=== PATIENT | female | born 1945 | race Caucasian/White ===

== ENCOUNTER 2017-09-08 17:51 | Emergency (ER) | payer MEDICARE ==
[2017-09-08] MEDS ORDERED: Ondansetron HCl/PF 4 MG/2 ML Vial ONE (18:14)
[2017-09-08] MEDS ORDERED: Morphine 4 MG/ML VIAL ONE ×2 (18:14→19:07)
[2017-09-08 18:29] LABS: #Basophils 0.1 thou/uL (0.0-0.2); #Eosinphils 0.1 thou/uL (0.0-0.7); #Lymphocytes 1.5 thou/uL (1.20-3.40); #Monocytes 0.6 thou/uL (0.11-0.59); #Neutrophils 4.3 thou/uL (1.40-6.50); %Basophils 0.8 % (0.0-1.0); %Eosinophils 1.3 % (0.0-10.0); %Lymphocytes 22.4 % (21.0-51.0); %Monocytes 9.4 % (0.0-10.0); Hematocrit 41.1 % (36.0-47.0); Mean Platelet Volume 7.4 fL (7.4-10.4); Red Blood Cell (RBC) Count 4.43 mill/uL (4.20-5.40); White Blood Cell (WBC) Count 6.5 thou/uL (4.8-10.8)
[2017-09-08 18:37] LABS: Bilirubin Negative (Negative); Blood, Urine Negative (Negative); Glucose, Urine (Dipstick) Negative (Negative); Ketone, Urine Negative (Negative); Nitrite Negative (Negative); Protein, Urine (Dipstick) Negative (Neg-Trace); Urobilinogen 0.2 mg/dL (0.2-1.0)
[2017-09-08 18:39] LABS: Bacteria/HPF None Seen HPF (None Seen); Hyaline Casts/LPF 0-3 HYALINE CAST LPF (0-3 Hyaline); RBC/HPF 0-3 HPF (0-3); Squamous Epithelial None Seen HPF (0-3); WBC/HPF 0-3 HPF (0-3)
[2017-09-08 18:54] LABS: ALT (SGPT) 24 U/L (8-55); AST (SGOT) 30 U/L (5-34); Alkaline Phosphatase 58 U/L (40-150); Anion Gap 12 mmol/L (10-20); BUN (Urea Nitrogen) 15 mg/dL (9.8-20.1); Bilirubin, Total 0.5 mg/dL (0.2-1.2); Calc. Creatinine Clearance 0 mL/min (70-130); Calcium 9.8 mg/dL (7.8-10.44); Carbon Dioxide 28 mmol/L (23-31); Chloride 102 mmol/L (98-107); Estimated GFR-MDRD 76; Globulin 2.9 g/dL (2.4-3.5); Lipase 5 U/L (8-78); Protein, Total 7.5 g/dL (6.0-8.3)
[2017-09-08] MEDS ORDERED: Ketorolac Tromethamine 30 MG/ML VIAL ONE (19:07)
--- NOTE | 2017-09-08 20:56 | CT ---
CT OF THE ABDOMEN AND PELVIS WITHOUT IV CONTRAST 09/08/17 INDICATION: Right sided flank pain. COMPARISON: CT of the chest, abdomen and pelvis dated 01/22/17 with contrast. FINDINGS: The lung bases are clear. There is calcified granuloma within the spleen and liver. There is a stable cyst within the right kid jr. No hydronephrosis. No definite renal or ureteral calculus noted. There are moderate calcifications involving the dominant aorta. The appendix is not definitely visualized. No free fluid is evident. The bladder is decompressed. The colon is largely decompressed. There is scattered colonic diverticul osis. There are scattered degenerative and osteoarthritic change. There is diffuse osteopenia. IMPRESSION: 1. No definite acute abnormality. 2. Right renal cyst. 3. Colonic diverticulosis. 4. Non visualization of the appendix; however, there are no secondary signs for appendicitis. POS: [facility]
--- NOTE | 2017-09-08 22:11 | ULT ---
RIGHT UPPER QUADRANT ULTRASOUND 09/08/17 INDICATION: Right flank pain, nausea and vomiting for four days. FINDINGS: No focal hepatic lesions evident. Gallbladder was within normal limits. Common bile duct measured 3.2 mm which is normal. Right kidney measured 10.3 cm in length. There is a 1.6 cm cyst involving the in ferior pole of the right kidney. The visualized portions of the pancreas is unremarkable. no sonograp hic Adam's sign is reported. IMPRESSION: 1. No acute sonographic abnormality of the right upper quadrant. 2. Right renal cyst. POS: [facility]
== END 2017-09-08 20:42 | disposition home or self-care (01) ==
LOC: ERS 17:51
DX: R10.11 Right upper quadrant pain (principal); R10.31 Right lower quadrant pain
CPT/HCPCS: 74176; 76705; 80053; 81003; 81015; 83690; 85025; 87086; 96361; 96374; 96375; 96376; J1885; J2270; J2405